=== PATIENT | female | born 1980 | race Caucasian/White ===

== ENCOUNTER → 2020-08-26 | Outpatient (CLI) | payer BC ==
[2020-08-26 15:35] LABS: HEMOGLOBIN 14.5 gm/dl (12.3-15.3); RED BLOOD COUNT 4.65 M/UL (4.00-5.10); WHITE BLOOD COUNT 6.5 K/UL (4.5-11.0)
[2020-08-26 15:59] LABS: BUN/CREATININE RATIO 22 (0-10)
== END ==
LOC: LAB 14:08
PROVIDERS: Internal Medicine
DX: M05.79 Rheumatoid arthritis with rheumatoid factor of multiple sites without organ or systems involvement (principal)
CPT/HCPCS: 36415; 80053; 85025; 85652; 86140

== ENCOUNTER → 2021-04-14 | Outpatient (CLI) | payer BC ==
[2021-04-14 15:31] LABS: HEMOGLOBIN 16.4 gm/dl (12.3-15.3); RED BLOOD COUNT 4.96 M/UL (4.00-5.10); WHITE BLOOD COUNT 11.3 K/UL (4.5-11.0)
[2021-04-14 16:11] LABS: BUN/CREATININE RATIO 22 (0-10)
== END ==
LOC: LAB 15:00
PROVIDERS: Internal Medicine
DX: M05.79 Rheumatoid arthritis with rheumatoid factor of multiple sites without organ or systems involvement (principal); Z79.899 Other long term (current) drug therapy
CPT/HCPCS: 80053; 85025; 85652; 86140